=== PATIENT | male | born 1985 | race Caucasian/White ===

== ENCOUNTER 2017-07-26 21:11 | Emergency (ER) | payer MEDICAID ==
[~2017-07-26] VITALS: Ht 167.6 cm; Wt 77.1 kg
[~2017-07-26 21:11] MED LIST: AMBIEN 10MG TAB10 MG PO; BUPRENORPHINE H1 TA2 SL; PAXIL10 MG PO
[2017-07-26] MEDS ORDERED: RISPERDAL4 M1 PO (21:21)
--- OUTSIDE RECORDS SUMMARY | 2017-07-26 21:33 | External Medical Summary Rpt | CCD ---
Author Author , JUNG FENG Address Unknown Phone [email or web address] Care Team Providers Care Progress Clerk Name Role Phone [facility], Unavailable Unavailable [facility], Unavailable Unavailable [facility] Unavailable Unavailable EMS, [facility] EMS [facility] Unavailable Unavailable [facility], [facility] Purpose Continuity of Care Document - 01-16-2014 through 2016 Problems Code Diagnosis DOS Provider Status R42 DIZZINESS 08-27-2016 [facility] 6823 CELLULITIS 01-28-2014 [facility] UPPER PHYSI ARM AND FOREARM 7295 PAIN IN 01-28-2014 [facility] SOFT RADIOLOGY TISSUES OF LIMB V2634 TESTING OF 01-16-2014 [facility] DISEASE CARRIER STATUS S51.812A LACERATION WITHOUT FOREIGN BODY OF LEFT FOREARM, INIT ENCNTR Z00.8 ENCOUNTER FOR OTHER GENERAL EXAMINATION Medications Na ND Rx Da Fi Fi Am Da Di Ph RX Ph St me C No te ll ll ou ys ag ar # ys at rm s nt no ma ic us Or Da si cy ia de te s n re d BU 00 10 11 5. 3 00 CL Ac TX 22 -2 -2 00 00 IN ti EN 83 7- 4- 0 00 IC ve OR 15 20 20 44 PH 57 17 17 69 PH IN 3 14 AR -N MA AL CY OX ON 8- 2 MG SL BU 00 10 11 4. 4 00 CL Ac TX 22 -1 -1 00 00 IN ti EN 83 9- 7- 0 00 IC ve OR 15 20 20 44 PH 57 17 17 61 PH IN 3 23 AR -N MA AL CY OX ON 8- 2 MG SL BU 00 10 11 3. 3 00 CL Ac TX 22 -1 -1 00 00 IN ti EN 83 4- 0- 0 00 IC ve OR 15 20 20 44 PH 57 17 17 55 PH IN 3 38 AR -N MA AL CY OX ON 8- 2 MG SL BU 00 06 07 28 14 00 CL Ac TX 22 -3 -2 .0 00 IN ti EN 83 0- 8- 00 00 IC ve OR 15 20 20 43 PH 57 17 17 54 PH IN 3 75 AR -N JOSR AL CY OX ON 8- 2 MG SL BU 00 06 07 28 14 00 CL Ac TX 22 -1 -0 .0 00 IN ti EN 83 6- 7- 00 00 IC ve OR 15 20 20 43 PH 57 17 17 40 PH IN 3 58 AR -N JOSR AL CY OX ON 8- 2 MG SL BU 00 06 06 28 14 00 CL Ac TX 22 -0 -3 .0 00 IN ti EN 83 3- 0- 00 00 IC ve OR 15 20 20 43 PH 57 17 17 27 PH IN 3 12 AR -N JOSR AL CY OX ON 8- 2 MG SL BU 00 05 06 28 14 00 CL Ac TX 22 -0 -0 .0 00 IN ti EN 83 2- 2- 00 00 IC ve OR 15 20 20 42 PH 57 17 17 98 PH IN 3 69 AR -N JOSR BELTRE CY OX ON 8- 2 MG SL BU 00 03 03 14 7 00 CL Ac TX 09 -0 -2 .0 00 IN ti EN 35 1- 4- 00 00 IC ve OR 72 20 20 42 PH 15 17 17 38 PH IN 6 21 AR -N JOSR BELTRE CY OX ON 8- 2 MG SL BU 00 02 03 14 7 00 CL Ac TX 09 -2 -1 .0 00 IN ti EN 35 1- 7- 00 00 IC ve OR 72 20 20 42 PH 15 17 17 30 PH IN 6 01 AR -N JOSR BELTRE CY OX ON 8- 2 MG SL BU 00 02 03 28 14 00 CL Ac TX 09 -0 -1 .0 00 IN ti EN 35 3- 0- 00 00 IC ve OR 72 20 20 42 PH 15 17 17 11 PH IN 6 65 AR -N JOSR BELTRE CY OX ON 8- 2 MG SL Encounters Encounter Start End Date Code Location Performer Type Date [facility] - 4 4 [facility]
--- OUTSIDE RECORDS SUMMARY | 2017-07-26 21:33 | External Medical Summary Rpt | CCD ---
Author Author , JUNG FENG Address Unknown Phone [email or web address] Care Team Providers Care Plastic Mixer Name Role Phone [facility], Unavailable Unavailable [facility] Unavailable Unavailable [facility] Unavailable Unavailable EMS, [facility] Unavailable Unavailable [facility], [facility] Purpose Continuity of Care Document - 01-16-2014 through 2016 Problems Code Diagnosis DOS Provider Status R42 DIZZINESS 08-27-2016 [facility] 6823 CELLULITIS 01-28-2014 [facility] OF UPPER PHYSI ARM AND FOREARM 7295 PAIN IN 01-28-2014 [facility] SOFT RADIOLOGY TISSUES OF LIMB V2634 TESTING OF 01-16-2014 [facility] GENETIC [facility] DISEASE CARRIER STATUS Medications Na ND Rx Da Fi Fi Am Da Di Ph RX Ph St me C No te ll ll ou ys ag ar # ys at rm s nt no ma ic us Or Da si cy ia de te s n re d BU 00 10 11 5. 3 00 CL Ac OR 22 -2 -2 00 00 IN ti EN 83 7- 4- 0 00 IC ve OR 15 20 20 44 PH 57 17 17 69 PH IN 3 14 AR -N MA AL CY OX ON 8- 2 MG SL BU 00 10 11 4. 4 00 CL Ac OR 22 -1 -1 00 00 IN ti EN 83 9- 7- 0 00 IC ve OR 15 20 20 44 PH 57 17 17 61 PH IN 3 23 AR -N MA AL CY OX ON 8- 2 MG SL BU 00 10 11 3. 3 00 CL Ac OR 22 -1 -1 00 00 IN ti EN 83 4- 0- 0 00 IC ve OR 15 20 20 44 PH 57 17 17 55 PH IN 3 38 AR -N MA AL CY OX ON 8- 2 MG SL BU 00 06 07 28 14 00 CL Ac OR 22 -3 -2 .0 00 IN ti EN 83 0- 8- 00 00 IC ve OR 15 20 20 43 PH 57 17 17 54 PH IN 3 75 AR -N MA AL CY OX ON 8- 2 MG SL BU 00 06 07 28 14 00 CL Ac OR 22 -1 -0 .0 00 IN ti EN 83 6- 7- 00 00 IC ve OR 15 20 20 43 PH 57 17 17 40 PH IN 3 58 AR -Efrain OVALLES AL CY OX ON 8- 2 MG SL BU 00 06 06 28 14 00 CL Ac OR 22 -0 -3 .0 00 IN ti EN 83 3- 0- 00 00 IC ve OR 15 20 20 43 PH 57 17 17 27 PH IN 3 12 AR -Efrain BELTRE CY OX ON 8- 2 MG SL BU 00 05 06 28 14 00 CL Ac OR 22 -0 -0 .0 00 IN ti EN 83 2- 2- 00 00 IC ve OR 15 20 20 42 PH 57 17 17 98 PH IN 3 69 LONNY -Efrain BELTRE CY OX ON 8- 2 MG SL BU 00 03 03 14 7 00 CL Ac OR 09 -0 -2 .0 00 IN ti EN 35 1- 4- 00 00 IC ve OR 72 20 20 42 PH 15 17 17 38 PH IN 6 21 LONNY -Efrain BELTRE CY OX ON 8- 2 MG SL BU 00 02 03 14 7 00 CL Ac OR 09 -2 -1 .0 00 IN ti EN 35 1- 7- 00 00 IC ve OR 72 20 20 42 PH 15 17 17 30 PH IN 6 01 LONNY -Efrain BELTRE CY OX ON 8- 2 MG SL BU 00 02 03 28 14 00 CL Ac OR 09 -0 -1 .0 00 IN ti EN 35 3- 0- 00 00 IC ve OR 72 20 20 42 PH 15 17 17 11 PH IN 6 65 LONNY -Efrain BELTRE CY OX ON 8- 2 MG SL Encounters Encounter Start End Date Code Location Performer Type Date [facility] 4 4 [facility]
--- OUTSIDE RECORDS SUMMARY | 2017-07-26 21:33 | External Medical Summary Rpt | CCD ---
Author Author , JUNG FENG Address Unknown Phone Care Team Providers Care Business Consult Name Role Phone [facility], Unavailable Unavailable [facility], Unavailable Unavailable [facility] Unavailable Unavailable EMS, [facility] Unavailable Un[facility], [facility] Purpose Continuity of Care Document - 01-16-2014 through 2016 Problems Code Diagnosis DOS Provider Status R42 DIZZINESS 08-27-2016 [facility] EMS 6823 CELLULITIS 01-28-2014 [facility] OF UPPER PHYSI ARM AND FOREARM 7295 PAIN IN 01-28-2014 [facility] SOFT RADIOLOGY TISSUES OF LIMB V2634 TESTING OF 01-16-2014 [facility] GENETIC [facility] DISEASE CARRIER STATUS Medications Na ND Rx [...] End Date Code Location Performer Type Date [facility] 4 4 [facility]
--- OUTSIDE RECORDS SUMMARY | 2017-07-26 21:33 | External Medical Summary Rpt | CCD ---
Author Author , JUNG FENG Address Unknown Phone [email or web address] Care Team Providers Care Network Operations Specialist Name Role Phone [facility], Unavailable Unavailable [facility]available Unavailable [facility] Unavailable Unavailable EMS, [facility] Unavailable Unavailable [facility], [facility] Purpose Continuity of Care Document - 01-16-2014 through 2016 Problems Code Diagnosis DOS Provider Status R42 DIZZINESS 08-27-2016 [facility] EMS 6823 CELLULITIS 01-28-2014 [facility]ERGENCY OF UPPER PHYSI ARM AND FOREARM 7295 PAIN IN 01-28-2014 [facility] SOFT RADIOLOGY TISSUES OF LIMB V2634 TESTING OF 01-16-2014 [facility] DISEASE CARRIER STATUS S51.812A LACERATION WITHOUT FOREIGN [...] 10 11 5. 3 00 CL Ac [place] 22 -2 -2 00 00 IN ti EN 83 7- 4- 0 00 IC ve OR 15 20 20 44 PH 57 17 17 69 PH IN 3 14 AR -N MA AL CY OX ON 8- 2 MG SL BU 00 10 11 4. 4 00 CL Ac [place] 22 -1 -1 00 00 IN ti EN 83 9- 7- 0 00 IC ve OR 15 20 20 44 PH 57 17 17 61 PH IN 3 23 AR -N MA AL CY OX ON 8- 2 MG SL BU 00 10 11 3. 3 00 CL Ac [place] 22 -1 -1 00 00 IN ti EN 83 4- 0- 0 00 IC ve OR 15 20 20 44 PH 57 17 17 55 PH IN 3 38 AR -N MA AL CY OX ON 8- 2 MG SL BU 00 06 07 28 14 00 CL Ac [place] 22 -3 -2 .0 00 IN ti EN 83 0- 8- 00 00 IC ve OR 15 20 20 43 PH 57 17 17 54 PH IN 3 75 AR -N JOSR AL CY OX ON 8- 2 MG SL BU 00 06 07 28 14 00 CL Ac [place] 22 -1 -0 .0 00 IN ti EN 83 6- 7- 00 00 IC ve OR 15 20 20 43 PH 57 17 17 40 PH IN 3 58 AR -N JOSR AL CY OX ON 8- 2 MG SL BU 00 06 06 28 14 00 CL Ac [place] 22 -0 -3 .0 00 IN ti EN 83 3- 0- 00 00 IC ve OR 15 20 20 43 PH 57 17 17 27 PH IN 3 12 AR -N JOSR AL CY OX ON 8- 2 MG SL BU 00 05 06 28 14 00 CL Ac KS 22 -0 -0 .0 00 IN ti EN 83 2- 2- 00 00 IC ve OR 15 20 20 42 PH 57 17 17 98 PH IN 3 69 AR -N JOSR BELTRE CY OX ON 8- 2 MG SL BU 00 03 03 14 7 00 CL Ac KS 09 -0 -2 .0 00 IN ti EN 35 1- 4- 00 00 IC ve OR 72 20 20 42 PH 15 17 17 38 PH IN 6 21 AR -N JOSR BELTRE CY OX ON 8- 2 MG SL BU 00 02 03 14 7 00 CL Ac [place] 09 -2 -1 .0 00 IN ti EN 35 1- 7- 00 00 IC ve OR 72 20 20 42 PH 15 17 17 30 PH IN 6 01 AR -N JOSR BELTRE CY OX ON 8- 2 MG SL BU 00 02 03 28 14 00 CL Ac [place] 09 -0 -1 .0 00 IN ti EN 35 3- 0- 00 00 IC ve OR 72 20 20 42 PH 15 17 17 11 PH IN 6 65 AR -N JOSR BELTRE CY OX ON 8- 2 MG SL Encounters Encounter Start End Date Code Location Performer Type Date [facility] [place] - 4 4 [facility]
--- OUTSIDE RECORDS SUMMARY | 2017-07-26 21:34 | External Medical Summary Rpt | CCD ---
Demographics Preferred Language Greenlandic Marital Status Unknown Rastafari Affiliation Unknown Race Unknown Ethnic Group Unknown Author Author , JUNG FENG Address Unknown Phone Immunization No patient found.
--- OUTSIDE RECORDS SUMMARY | 2017-07-26 21:34 | External Medical Summary Rpt | CCD ---
Demographics Preferred Language Georgian Marital Status Unknown Moravian Affiliation Unknown Race Unknown Ethnic Group Unknown Author Author , JUNG FENG Address Unknown Phone Immunization No patient found.
[2017-07-26] MEDS ORDERED: KEFLEX 500MG.500 MG PO (22:26)
--- NOTE | 2017-07-26 22:31 | Emergency Room Report ---
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 N Clinical Suspician of Infection? N Mental Status: 1 - Regular (Normal Baseline) Sepsis Risk:Low Sepsis Risk Have you (or family members/close friends) recently traveled outside the [place]? N If Yes, where/when: Have you had exposure to infectious disease within the past month? N TB? Other? Specify: Source patient, RN notes reviewed, family, old records Exam Limitations no limitations Comment not workman comp - cut rt thenar area with steel box toe inserter - this pm Cardiac Chest Pain Chest pain indicative of cardiac No Timing/Duration this evening Severity moderate ALLERGIES Coded Allergies: Penicillins (01/06/17) vancomycin (01/06/17) Home Medications Reported Medications PAROXETINE HCL (Paxil) 10 MG PO DAILY Zolpidem Tartrate (Ambien 10MG) 10 MG PO QHS BUPRENORPHINE HCL/NALOXONE HCL (Buprenorphin-Naloxon 8-2 MG Sl) 1 TAB SL DAILY #28 Risperidone (Risperdal) 4 MG PO BID History Medical History General CAD? No Angina: No UT: No Hypertension? No Hyperlipidemia? No CHF? No DVT? No PE? No COPD? No Asthma? No Anemia? No GERD? No Gastric ulcers? No GI Bleed? No Hernia? No Thyroid Problems? No Hypothyroidism? No CVA? No Seizures? No Diabetes? No Renal Insuffiency? No End Stage Renal Disease? No UTI? No Stones? No BPH? No GB Disease: No Nephritic Syndrome? No Asplenia? No Hepatitis? No Sickle Cell Disease? No Arthritis? No Migraines? No Cataracts? No Glaucoma? No MRSA? No HIV? No TB? No Anxiety? No Depression? Yes Cancer? No More? Yes Additional hx: PTSD Immunization Hx DT/Tetanus Unknown Surgical Hx Previous Surgery?N Social History Smoking Hx Smoker: Current Every Day Smoker Tobacco: Yes Type Cigarettes Packs/day 1 1/2 - 2 Packs Alcohol Alcohol: Yes Drugs none Review of Systems All Other Systems Reviewed and Negative Constitutional denies fever Eyes denies drainage ENT denies: ear discharge, epistaxis, throat pain. Respiratory denies cough, denies shortness of breath, denies wheezing Cardiovascular denies chest pain, denies palpitations, denies syncope Gastrointestinal denies abdominal pain, denies diarrhea, denies vomiting Genitourinary denies: dysuria, frequency, hesitancy, hematuria. Musculoskeletal denies back pain, denies joint pain, denies joint swelling, denies neck pain Skin see HPI, denies rash, other Psychiatric/Neurological denies headache, denies seizure Physical Exam Vital Signs Vital Signs Date Time Temp Pulse Resp B/P Pulse O2 O2 Flow FiO2 Ox Delivery Rate 07/26 2115 97.9 81 18 126/79 98 - WBC >12,000 or <4,000 or 10% bands? 2 or more SIRS Criteria Met? B/P:126/79 MAP:94 Creatinine >2.0? UA output<0.5ml/kg/hr for 2 hrs? Platelet count >100,000? Lactate >2.0mmol/1? INR >1.2 or PTT > than 60 sec? Evidence of Organ Dysfunction? Provider documented clinical suspician of infection? N Sepsis Criteria Count: 0 Sepsis Risk: Low Sepsis Risk General Appearance no apparent distress Eye Exam - bilateral eye PERRL, bilateral eye EOMI Ear, Nose, Throat normal ENT inspection Neck supple Respiratory Status No: respiratory distress. 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 No Results/Orders Current Medication Orders Sig/Zita Start time Last Medication Dose Route Stop Time Status Admin Diphtheria/Pertussis/ 0.5 ML ONCE ONE 07/26 2200 DC 07/26 Tetanus Vacc IM 07/26 Diphtheria/Pertussis/ 0 .STK-MED ONE 07/26 2159 DC Tetanus Vacc IM Tetanus/Diphtheria 0 .STK-MED ONE 07/26 2157 DC Toxoids Adsorbed IM Lidocaine HCl 20 ML ONCE ONE 07/26 2145 DC 07/26 SC 07/26 Tetanus/Diphtheria 0.5 ML ONCE ONE 07/26 2145 CAN Toxoids Adsorbed IM 07/26 2146 Lidocaine HCl 0 .STK-MED ONE 07/26 2124 DC .ROUTE Procedures Laceration/Wound Repair Laceration/Wound Repair Risks/benefits discussed with pt/guardian? Yes Tetanus status not up to date Wound Location hand Wound Length (cm) 3 Wound's Depth, Shape into muscle Wound Explored no FB identified Risk of retained FB explained to pt/guardian? Yes Irrigated w/ Saline (ccs) 0 Wound Prep Hibiclens, Saline Anesthesia 1% Lidocaine, Local Volume Anesthetic (ccs) 5 Wound Debrided none Wound Repaired With sutures Suture Size/Type 4:0, 3:0, Ethilon Layer Closure No Total Number Sutures 13 Sterile Dressing Applied Yes Splint Applied Yes Type of Splint Applied wrist velcro Sling Applied No Departure Departure Time of Disposition 2222 Disposition DC Home or Self Care(routine) Clinical Impression Primary Impression: Laceration of hand, right, complicated Qualifiers: Encounter type: initial encounter Qualified Code: S61.411A - Laceration without foreign body of right hand, initial encounter Condition STABLE Referrals VERONICA NOGUEIRA Patient Instructions DI for Laceration Repair Additional Instructions will need to see hand surg as you lacerated mm and possible cut nerve- or see pcp for follow up and refferral Discharge Counseling Counseled pt/family regarding diagnosis, medications/RX, follow up needs Prescriptions Current Visit Scripts CEPHALEXIN (Keflex 500MG Capsule) 500 MG PO Q8H #30 CAP ED Critical Care Critical Care No at 2230
[2017-07-26 22:46] VITALS: BP 106/70
== END 2017-07-26 22:47 | disposition home or self-care (01) ==
LOC: ER 21:11
PROC: 0HQFXZZ Repair Right Hand Skin, External Approach (ICD-10-PCS; principal; 2017-07-26)
DX: S61.411A Laceration without foreign body of right hand, initial encounter (principal)